=== PATIENT | female | born 1975 | race African-American/Black ===

== ENCOUNTER 2020-11-13 19:55 | Inpatient (IN) ==
[2020-11-13] MEDS ORDERED: SODIUM CHLORIDE 0.9% 1,000 ML IV STA (22:08)
[2020-11-13] MEDS ORDERED: ACETAMINOPHEN 500 MG TABLET PO STA (22:20)
[2020-11-13] MEDS ORDERED: ACETAMINOPHEN 500 MG TABLET ONE (22:26)
[2020-11-13 23:22] LABS: Basophils % 0.1 % (0.0-0.8); Eosinophils % 0.2 % (0.00-10.9); Hemoglobin 10.4 GM/DL (12.0-16.0); Immature Granulocytes % 0.5 %; Immature Granulocytes Absolute 0.04 #; Lymphocytes # 0.5 10*3/uL (1.4-4.0); Lymphocytes % 5.6 % (21.3-54.2); Mean Corpuscular HGB Conc 33.5 GM/DL (32-36); Mean Corpuscular Volume 93.9 FL (87-102); Mean Platelet Volume 10.1 FL (9.6-12.0); Monocytes % 4.9 % (1.7-12.7); Neutrophils % 88.7 % (38.7-73.9); Platelet Count 313 T/CUMM (130-400); Red Cell Distribution Width 13.6 % (9.3-17.3); White Blood Count 8.8 T/CUMM (4-12)
[2020-11-14 00:07] LABS: Bacteria,Urine Many /HPF (Few); Bilirubin,Urine Moderate mg/dL (Negative); Blood, Urine Small mg/dL (Negative); Glucose,Urine (UA) Negative (Negative); Hyaline Casts,Urine 28 /LPF (0-3); Ketones,Urine Negative (Negative); Nitrite,Urine Negative (Negative); Protein,Urine 100 MG/DL; RBC,Urine 12 /HPF (0-4); Squamous Epithelial Cell,Urine Occasional /HPF (0-10); Urine Appearance CLOUDY (Clear); Urine Color Amber (Yellow); Urine Specific Gravity 1.029 (1.001-1.035)
[2020-11-14 00:45] LABS: Albumin 2.6 G/DL (3.4-5.0); Bilirubin,Total 0.4 MG/DL (0.20-1.00); Calcium 8.5 MG/DL (8.5-10.1); Osmolality,Calculated 269.1 MOS/KG (273-304); Total Protein 7.9 G/DL (6.4-8.2)
[2020-11-14] MEDS ORDERED: GLUCAGON 1 MG VIAL IM PRN (02:50)
[2020-11-14] MEDS ORDERED: DEXTROSE 50% 25 GM/50 ML VIAL IV PRN (02:50)
[2020-11-14] MEDS ORDERED: ZALEPLON 5 MG CAPSULE PO PRN (02:50)
[2020-11-14] MEDS ORDERED: ACETAMINOPHEN 325 MG TABLET PO PRN (02:50)
[2020-11-14] MEDS: cefTRIAXone 1,000 MG in SODIUM CHLORIDE 0.9% 100 ML IV SCH (03:50)
[2020-11-14] MEDS: POTASSIUM CHLORIDE 20 MEQ TABLET PO PRN ×2 (06:34→20:42)
[2020-11-14 08:37] LABS: Basophils % 0.2 % (0.0-0.8); Eosinophils % 0.4 % (0.00-10.9); Hemoglobin 9.5 GM/DL (12.0-16.0); Immature Granulocytes % 0.4 %; Immature Granulocytes Absolute 0.02 #; Lymphocytes # 0.6 10*3/uL (1.4-4.0); Lymphocytes % 12.1 % (21.3-54.2); Mean Corpuscular HGB Conc 32.8 GM/DL (32-36); Mean Corpuscular Volume 94.8 FL (87-102); Mean Platelet Volume 9.6 FL (9.6-12.0); Monocytes % 8.6 % (1.7-12.7); Neutrophils % 78.3 % (38.7-73.9); Platelet Count 291 T/CUMM (130-400); Red Blood Count 3.06 MC/CUMM (3.8-5.5); Red Cell Distribution Width 13.7 % (9.3-17.3); White Blood Count 4.8 T/CUMM (4-12)
[2020-11-14 08:56] LABS: Albumin 2.5 G/DL (3.4-5.0); Bilirubin,Total 0.7 MG/DL (0.20-1.00); Calcium 9.4 MG/DL (8.5-10.1); Osmolality,Calculated 277.3 MOS/KG (273-304); Potassium 3.7 MMOL/L (3.5-5.1); Total Protein 8.7 G/DL (6.4-8.2)
[2020-11-14] MEDS: ENOXAPARIN 40 MG/0.4 ML SYRINGE SUBCUT SCH (10:06)
[2020-11-14] MEDS ORDERED: ALBUTEROL/IPRATROPIUM 3 ML NEB RESP TX PRN (10:13)
[2020-11-14] MEDS: FLUCONAZOLE INJ 200 MG/100 ML PREMIX IV SCH (10:18)
[2020-11-14] MEDS: AZITHROMYCIN INJ 500 MG in SODIUM CHLORIDE 0.9% 250 ML IV SCH (10:30)
[2020-11-14] MEDS: MONTELUKAST 10 MG TABLET PO SCH (11:47)
[2020-11-14] MEDS: methylPREDNISolone SOD SUC 40 MG/1 ML VIAL IV SCH ×2 (11:47→22:07)
[2020-11-14 11:52] LABS: % Iron Saturation 13.3 % (18-50); Ferritin 521.6 ng/ml (8-252)
[2020-11-14] MEDS: ALBUTEROL/IPRATROPIUM 3 ML NEB RESP TX SCH ×2 (14:53→19:20)
[2020-11-14] MEDS: ALBUTEROL 2 MG TABLET PO SCH ×2 (15:10→22:06)
[2020-11-15] MEDS: cefTRIAXone 1,000 MG in SODIUM CHLORIDE 0.9% 100 ML IV SCH (03:13)
[2020-11-15] MEDS: ALBUTEROL 2 MG TABLET PO SCH ×3 (05:59→21:54)
[2020-11-15] MEDS: ALBUTEROL/IPRATROPIUM 3 ML NEB RESP TX SCH ×4 (07:50→19:30)
[2020-11-15] MEDS: LACTATED RINGERS 1,000 ML IV SCH (10:09)
[2020-11-15] MEDS: AZITHROMYCIN INJ 500 MG in SODIUM CHLORIDE 0.9% 250 ML IV SCH (10:11)
[2020-11-15] MEDS: MONTELUKAST 10 MG TABLET PO SCH (10:11)
[2020-11-15] MEDS: methylPREDNISolone SOD SUC 40 MG/1 ML VIAL IV SCH ×2 (10:14→21:56)
[2020-11-15] MEDS: FLUCONAZOLE INJ 200 MG/100 ML PREMIX IV SCH (12:21)
[2020-11-15 15:25] LABS: % CD4 (T Cells) 6 % (32-64); % CD8 (T Cells) 75 % (13-40); 4/8 Ratio 0.1 (>=0.9)
[2020-11-16] MEDS: ALBUTEROL/IPRATROPIUM 3 ML NEB RESP TX SCH ×4 (00:19→20:12)
[2020-11-16] MEDS: cefTRIAXone 1,000 MG in SODIUM CHLORIDE 0.9% 100 ML IV SCH (02:59)
[2020-11-16] MEDS: ALBUTEROL 2 MG TABLET PO SCH ×3 (06:00→21:28)
[2020-11-16 08:54] LABS: Basophils % 0.1 % (0.0-0.8); Hematocrit 29.3 VOL% (35.7-47.0); Hemoglobin 9.4 GM/DL (12.0-16.0); Immature Granulocytes % 1.1 %; Immature Granulocytes Absolute 0.11 #; Lymphocytes # 0.5 10*3/uL (1.4-4.0); Lymphocytes % 4.3 % (21.3-54.2); Mean Corpuscular HGB Conc 32.1 GM/DL (32-36); Mean Corpuscular Volume 96.4 FL (87-102); Mean Platelet Volume 9.5 FL (9.6-12.0); Monocytes % 3.8 % (1.7-12.7); Neutrophils % 90.7 % (38.7-73.9); Platelet Count 366 T/CUMM (130-400); Red Blood Count 3.04 MC/CUMM (3.8-5.5); Red Cell Distribution Width 14.1 % (9.3-17.3); White Blood Count 10.4 T/CUMM (4-12)
[2020-11-16 09:27] LABS: Band Neutrophils 6 % (0-10); Lymphocytes 4 % (20-55); Platelet Estimate Normal; Segmented Neutrophils 84 % (50-85); Total Cells Counted 100
[2020-11-16 09:28] LABS: Albumin 2.8 G/DL (3.4-5.0); Anisocytosis 1+; Bilirubin,Total 0.7 MG/DL (0.20-1.00); Calcium 10.2 MG/DL (8.5-10.1); Osmolality,Calculated 283.1 MOS/KG (273-304); Potassium 3.8 MMOL/L (3.5-5.1)
[2020-11-16] MEDS: FLUCONAZOLE INJ 200 MG/100 ML PREMIX IV SCH (09:33)
[2020-11-16] MEDS: ENOXAPARIN 40 MG/0.4 ML SYRINGE SUBCUT SCH (09:34)
[2020-11-16] MEDS: MONTELUKAST 10 MG TABLET PO SCH (09:34)
[2020-11-16] MEDS: LACTATED RINGERS 1,000 ML IV SCH (13:27)
[2020-11-16] MEDS: methylPREDNISolone SOD SUC 40 MG/1 ML VIAL IV SCH ×2 (13:53→21:30)
[2020-11-16] MEDS: AZITHROMYCIN INJ 500 MG in SODIUM CHLORIDE 0.9% 250 ML IV SCH (13:53)
[2020-11-16] MEDS: DEXTROSE 5% IV SCH ×2 (16:32→21:33)
[2020-11-16] MEDS: TRIMETH IV SCH ×2 (16:32→21:33)
[2020-11-16] MEDS: SULFAMETH IV SCH ×2 (16:32→21:33)
[2020-11-17] MEDS: ALBUTEROL/IPRATROPIUM 3 ML NEB RESP TX SCH ×4 (01:00→20:00)
[2020-11-17] MEDS: cefTRIAXone 1,000 MG in SODIUM CHLORIDE 0.9% 100 ML IV SCH (02:22)
[2020-11-17] MEDS: SULFAMETH IV SCH ×3 (02:54→18:16)
[2020-11-17] MEDS: TRIMETH IV SCH ×3 (02:54→18:16)
[2020-11-17] MEDS: DEXTROSE 5% IV SCH ×3 (02:54→18:16)
[2020-11-17 05:36] LABS: Basophils % 0.1 % (0.0-0.8); Hematocrit 26.5 VOL% (35.7-47.0); Hemoglobin 8.7 GM/DL (12.0-16.0); Immature Granulocytes % 0.9 %; Immature Granulocytes Absolute 0.09 #; Lymphocytes # 0.3 10*3/uL (1.4-4.0); Mean Corpuscular HGB Conc 32.8 GM/DL (32-36); Mean Corpuscular Volume 95.7 FL (87-102); Mean Platelet Volume 9.9 FL (9.6-12.0); Monocytes % 2.4 % (1.7-12.7); Neutrophils % 93.6 % (38.7-73.9); Platelet Count 362 T/CUMM (130-400); Red Blood Count 2.77 MC/CUMM (3.8-5.5); Red Cell Distribution Width 14.2 % (9.3-17.3); White Blood Count 10.5 T/CUMM (4-12)
[2020-11-17] MEDS: ALBUTEROL 2 MG TABLET PO SCH ×3 (05:51→21:46)
[2020-11-17 06:12] LABS: Calcium 9.9 MG/DL (8.5-10.1); Osmolality,Calculated 279.5 MOS/KG (273-304); Potassium 3.9 MMOL/L (3.5-5.1)
[2020-11-17 06:59] LABS: Lymphocytes 4 % (20-55); Segmented Neutrophils 95 % (50-85); Total Cells Counted 100
[2020-11-17 07:00] LABS: Platelet Estimate Increased; Polychromasia Slight
[2020-11-17 07:01] LABS: Ovalocytes Slight
[2020-11-17] MEDS: ENOXAPARIN 40 MG/0.4 ML SYRINGE SUBCUT SCH (10:06)
[2020-11-17] MEDS: MONTELUKAST 10 MG TABLET PO SCH (10:06)
[2020-11-17] MEDS: FLUCONAZOLE INJ 200 MG/100 ML PREMIX IV SCH (10:08)
[2020-11-17] MEDS: methylPREDNISolone SOD SUC 40 MG/1 ML VIAL IV SCH ×2 (11:54→21:49)
[2020-11-17] MEDS: AZITHROMYCIN INJ 500 MG in SODIUM CHLORIDE 0.9% 250 ML IV SCH (13:57)
[2020-11-18] MEDS: DEXTROSE 5% IV SCH ×3 (00:02→12:47)
[2020-11-18] MEDS: SULFAMETH IV SCH ×3 (00:02→12:47)
[2020-11-18] MEDS: TRIMETH IV SCH ×3 (00:02→12:47)
[2020-11-18] MEDS: ALBUTEROL/IPRATROPIUM 3 ML NEB RESP TX SCH ×4 (00:38→19:10)
[2020-11-18] MEDS: cefTRIAXone 1,000 MG in SODIUM CHLORIDE 0.9% 100 ML IV SCH (02:32)
[2020-11-18] MEDS: ALBUTEROL 2 MG TABLET PO SCH ×3 (05:27→21:09)
[2020-11-18 05:36] LABS: Basophils % 0.1 % (0.0-0.8); Hematocrit 26.6 VOL% (35.7-47.0); Hemoglobin 8.7 GM/DL (12.0-16.0); Immature Granulocytes % 1.3 %; Immature Granulocytes Absolute 0.15 #; Lymphocytes # 0.3 10*3/uL (1.4-4.0); Mean Corpuscular HGB Conc 32.7 GM/DL (32-36); Mean Corpuscular Volume 95.3 FL (87-102); Mean Platelet Volume 9.8 FL (9.6-12.0); Monocytes % 3.2 % (1.7-12.7); NRBC # 0.05 10*3/uL; Neutrophils % 92.4 % (38.7-73.9); Platelet Count 412 T/CUMM (130-400); Red Blood Count 2.79 MC/CUMM (3.8-5.5); Red Cell Distribution Width 14.2 % (9.3-17.3); White Blood Count 11.4 T/CUMM (4-12)
[2020-11-18 05:52] LABS: Albumin 2.6 G/DL (3.4-5.0); Bilirubin,Total 0.4 MG/DL (0.20-1.00); Calcium 10.4 MG/DL (8.5-10.1); Osmolality,Calculated 274.8 MOS/KG (273-304); Potassium 4.2 MMOL/L (3.5-5.1)
[2020-11-18 06:46] LABS: Anisocytosis 1+; Band Neutrophils 4 % (0-10); Lymphocytes 4 % (20-55); Nucleated Red Blood Cells 1 (0-5); Platelet Estimate Normal; Segmented Neutrophils 88 % (50-85); Total Cells Counted 100
[2020-11-18 06:47] LABS: Macrocytosis 1+; Polychromasia Slight
[2020-11-18] MEDS: methylPREDNISolone SOD SUC 40 MG/1 ML VIAL IV SCH ×2 (09:37→21:39)
[2020-11-18] MEDS: ENOXAPARIN 40 MG/0.4 ML SYRINGE SUBCUT SCH (09:39)
[2020-11-18] MEDS: FLUCONAZOLE INJ 200 MG/100 ML PREMIX IV SCH (09:39)
[2020-11-18] MEDS: MONTELUKAST 10 MG TABLET PO SCH (09:39)
[2020-11-18] MEDS ORDERED: MAGNESIUM HYDROXIDE SUSP 30 ML UDCUP PO PRN (12:35)
[2020-11-18] MEDS ORDERED: MAGNESIUM HYDROXIDE SUSP 30 ML UDCUP PO ONE (12:35)
[2020-11-18] MEDS: AZITHROMYCIN INJ 500 MG in SODIUM CHLORIDE 0.9% 250 ML IV SCH (12:47)
[2020-11-18] MEDS: POLYETHYLENE GLYCOL POWDER 17 GM PACK PO SCH (14:22)
[2020-11-18] MEDS: SULFAMETHOX/TRIMETHOPRIM 800-160 MG TABLET PO SCH (21:09)
[2020-11-19] MEDS: ALBUTEROL/IPRATROPIUM 3 ML NEB RESP TX SCH ×2 (00:15→07:22)
[2020-11-19] MEDS ORDERED: FLUCONAZOLE 200 MG TABLET PO SCH (09:00)
[2020-11-19] MEDS: SULFAMETHOX/TRIMETHOPRIM 800-160 MG TABLET PO SCH (09:31)
[2020-11-19] MEDS: methylPREDNISolone SOD SUC 40 MG/1 ML VIAL IV SCH (09:32)
[2020-11-19] MEDS: MONTELUKAST 10 MG TABLET PO SCH (09:32)
[2020-11-19] MEDS: ENOXAPARIN 40 MG/0.4 ML SYRINGE SUBCUT SCH (09:32)
[2020-11-19] MEDS: POLYETHYLENE GLYCOL POWDER 17 GM PACK PO SCH (09:36)
[2020-11-19] MEDS: ALBUTEROL 2 MG TABLET PO SCH (10:52)
[2020-11-19 12:02] VITALS: BP 134/80
[2020-11-21 17:16] LABS: Herpesvirus 7 IgM Ab by IFA <1:20
[2020-11-22 10:36] LABS: QuantiFERON-Tb Gold Pl INDETERMINATE (Negative); TB2 Ag Minus Result 0 IU/mL
== END 2020-11-19 13:01 | disposition home or self-care (01) | DRG 892 ==
LOC: N.EDINP 19:55 → N.ED 19:55 → SUATTDRO 11-14 02:50 → N.TELEN 11-14 03:48 → SUATTDRO 11-14 09:35
PROVIDERS: ADMIT Internal Medicine; ATTEND Internal Medicine Geriatric Medicine